=== PATIENT | female | born 1970 | race Caucasian/White ===

== ENCOUNTER 2024-08-24 14:36 | Emergency (ER) | payer OTHER ==
[~2024-08-24] VITALS: Ht 165.1 cm; Wt 120.7 kg
[2024-08-24 14:39] VITALS: BP 140/90; TEMP 99.1; O2SAT 96
== END 2024-08-24 18:00 | disposition home or self-care (01) ==
LOC: M ED 14:36
DX: J09.X2 Influenza due to identified novel influenza A virus with other respiratory manifestations (principal); E03.9 Hypothyroidism, unspecified; Z91.018 Allergy to other foods